=== PATIENT | female | born 1980 | race Caucasian/White ===

== ENCOUNTER 2016-10-31 10:45 | Emergency (ER) | payer OTHER, MEDICAID ==
[2016-10-31 10:56] VITALS: BP 119/73; PULSE 96; RESP 16; TEMP 98.4; O2SAT 96
--- NOTE | 2016-10-31 11:05 | UCPHY ---
H & P Patient Type: Established Chief Complaint Nursing Narrative: C/o R AC redness and pain since yesterday. Pt states she used knife yesterday to cut lump on R AC yesterday but after she noticed redness/pain. Currently taking doxycycline for bone infection. Time Seen by Provider: 10/31/16 11:04 HPI/ROS: CHIEF COMPLAINT: Right arm redness and swelling HISTORY OF PRESENT ILLNESS: This patient is a 36 year old woman, with a history of methamphetamine abuse and ankle osteomyelitis on chronic doxycycline, presenting with acute right arm erythema and swelling, over the right antecubital fossa, onset yesterday. It is tender to palpation and is aggravated by bending her elbow. Symptoms are mild-moderate in severity. There is a puncture cleo over the right elbow, which she reports is because she poked the area with a knife. She denies current methamphetamine or IV drug use. She tells me she sees a drug counselor once weekly. REVIEW OF SYSTEMS: A ten point review of systems was performed and is negative with the exception of the items mentioned in the HPI. Source: Patient Exam Limitations: No limitations - Personal History LMP (Females 10-55): 1-7 Days Ago Current Tetanus Diphtheria and Acellular Pertussis (TDAP): Yes Tetanus Vaccine Date: 06/2012 - Medical/Surgical History Hx Asthma: No Hx Chronic Respiratory Disease: No Hx Diabetes: No Hx Cardiac Disease: No Hx Renal Disease: No Hx Cirrhosis: No Hx Alcoholism: No Hx HIV/AIDS: No Hx Splenectomy or Spleen Trauma: No Other PMH: bipolar, PTSD, ANXIETY, TUBAL, R LEG FX AND ANKLE SURGERY, knee surgery, multiple substance abuse, methamphetamine abuse. MSSA osteomyelitis and hardware infection of the right ankle, on chronic doxycycline. - Family History Significant Family History: No pertinent family hx - Social History Smoking Status: Current every day smoker (1/2 pack daily) Drug Use: Other (History of methamphetamine use. Last reported use 07/2016. ) Additional Social History: She is disabled, unemployed as a result. - Physical Exam Exam: General Appearance: Alert. Smells of tobacco. Vital signs reviewed. Afebrile. Eyes: Pupils equal and round, no conjunctival injection, no discharge. Anicteric. ENT, Mouth: Mucous membranes are moist, no oropharyngeal erythema or edema. Neck: No lymphadenopathy. Respiratory: Lungs are clear to auscultation; no wheezes, rales, or rhonchi. Cardiovascular: Regular rate and rhythm; no murmur, rub, or gallop. Gastrointestinal: Abdomen is soft and nontender, no masses or organomegaly, bowel sounds normal. Skin: Warm and dry, no rashes on exposed skin. See Extremities. Back: Nontender to palpation over the thoracolumbar spine. Extremities: There is well-confined [id number] erythema and swelling to the right antecubital fossa, with associated mild tenderness. No fluctuance. No lymphangitic streaking. Normal elbow range of motion, no joint effusion. Pulse: 2+ bilateral radial pulses. Neurological: Alert and oriented. Normal strength and sensation both UEs. Psychiatric: Normal affect. Constitutional: Initial Vital Signs Temperature (C) 36.9 C 10/31/16 10:50 Heart Rate 96 10/31/16 10:50 Respiratory Rate 16 10/31/16 10:50 Blood Pressure 119/73 10/31/16 10:50 O2 Sat (%) 96 10/31/16 10:50 O2 Delivery Mode Room Air Allergies/Adverse Reactions: venom-wasp [wasp venom] Allergy (Severe, Verified 11/01/16 10:25) Anaphylaxis Sulfa (Sulfonamide Antibiotics) Allergy (Mild, Verified 11/01/16 10:25) Rash Home Medications: Medication Instructions Recorded Gabapentin [Neurontin] 06/12/16 Prazosin HCl [Minipress] 06/12/16 QUEtiapine FUMARATE [Seroquel 100 06/12/16 mg (*)] Vilazodone Hydrochloride [Viibryd] 06/12/16 clonazePAM [Klonopin (*)] 06/12/16 lamOTRIGine [Lamictal] 06/12/16 Doxycycline Hyclate [Vibramycin 07/22/16 100 MG (*)] Amoxicillin/Clavulanate Pot 875 mg PO BID #14 tab 10/31/16 [Augmentin 875 MG TAB (*)] Saphris 10/31/16 Medical Decision Making ED Course/Re-evaluation: This patient presents with right antecubital fossa erythema, swelling, and tenderness, onset yesterday. There is an associated puncture cleo. The patient states this was made with a knife poking at the area, and denies methamphetamine or other IV drug use. The area is tender to palpation. There is no associated fluctuance, no palpable abscess. History is significant for ankle osteoarthritis on chronic doxycycline, which is followed by Dr. Bob Austin, as well as history of methamphetamine abuse. I have paged infectious disease for consult. 1225: I consulted with Dr. Zandra Amado, infectious disease. She recommends adding Augmentin to her doxycycline regimen. Infectious disease will see the patient in follow up early next week. I discussed these recommendations with the patient. She expresses understanding and agreement. Recommended cool compresses and arm elevation. Differential Diagnosis: DDx includes but is not limited to abscess, cellulitis, superficial thrombophlebitis, DVT, and septic arthritis or osteomyelitis. Departure - Departure Disposition: Home, Routine, Self-Care Clinical Impression: Cellulitis of antecubital fossa Condition: Good Instructions: Cellulitis (ED) Additional Instructions: Take Augmentin, as prescribed, in addition to your normal doxycycline regimen. Apply cold packs to the area and try to elevate your arm. Follow up with Infectious Disease early next week. Seek care from an Emergency Department for fever, redness, discharge from wound, increasing pain, swelling, streaking up the arm, or other worsening of condition. Referrals: [facility],. [Clinic] - As per Instructions Bob Austin MD [Medical Doctor] - As per Instructions Prescriptions: Amoxicillin/Clavulanate Pot [Augmentin 875 MG TAB (*)] 875 mg PO BID #14 tab - PQRS PQRS Measurement: Does not apply Report Scribed for: Ariadna Gamez Report Scribed by: Rosangela Cordoba Date of Report: 10/31/16 Time of Report: 11:37 Physician Review and Approval Statement: 10/31/16 11:05 Portions of this note were transcribed by the medical detailist. I, Dr. Ariadna Gamez, personally performed the history, physical exam, and medical decision- making; and confirmed the accuracy of the information in the transcribed note.
== END 2016-10-31 12:36 | disposition home or self-care (01) ==
LOC: CED 10:45
DX: L03.113 Cellulitis of right upper limb (principal); F17.200 Nicotine dependence, unspecified, uncomplicated
CPT/HCPCS: G0463-PO

== ENCOUNTER 2016-11-01 10:15 | Emergency (ER) | payer OTHER, MEDICAID ==
[2016-11-01 11:40] LABS: % IMMATURE GRANULYOCYTES 0.3 % (0.0-1.1); ABSOLUTE IMMATURE GRANULOCYTES 0.03 10^3/uL (0.00-0.10); ADD DIFF? NO; ADD MORPH? NO; ADD SCAN? NO; ATYPICAL LYMPHOCYTE FLAG 20 (0-99); FRAGMENT RBC FLAG 0 (0-99); HEMATOCRIT 39.1 % (38.0-47.0); HEMOGLOBIN 12.9 g/dL (12.6-16.3); LEFT SHIFT FLG 0 (0-99); LIPEMIA HEMOLYSIS FLAG 80 (0-99); MEAN CELL HEMOGLOBIN 28.3 pg (27.9-34.1); MEAN CELL VOLUME 85.7 fL (81.5-99.8); MEAN PLATELET VOLUME 9.6 fL (8.7-11.7); PLATELET CLUMPS FLAG 0 (0-99); PLATELET COUNT 386 10^3/uL (150-400); RED BLOOD CELL COUNT 4.56 10^6/uL (4.18-5.33); RED CELL DISTRIBUTION WIDTH 15.8 % (11.5-15.2)
[2016-11-01 12:04] LABS: ANION GAP 12 mEq/L (8-16); CALCIUM 9.2 mg/dL (8.5-10.4); CARBON DIOXIDE 21 mEq/l (22-31); CHLORIDE 111 mEq/L (97-110); CREATININE 0.7 mg/dL (0.6-1.0); GLOMERULAR FILTRATION RATE > 60; GLUCOSE 101 mg/dL (70-100); POTASSIUM 4.6 mEq/L (3.5-5.2); SODIUM 144 mEq/L (134-144)
[2016-11-01 13:03] VITALS: RESP 16
[2016-11-01] MEDS ORDERED: BACITRACIN OINTMENT 1 PACKET TP ONE (14:08)
--- NOTE | 2016-11-01 14:17 | EDPHY ---
H & P Time Seen by Provider: 11/01/16 10:59 HPI/ROS: CHIEF COMPLAINT: Pain and swelling right arm HISTORY OF PRESENT ILLNESS: 36-year-old female presents to the emergency department with pain and swelling to her right over the last few days. The patient has a history of osteomyelitis and is currently on oral doxycycline 100 mg daily. She states that she has to take doxycycline for the rest of her life. She is concerned because she developed swelling in the right antecubital fossa and yesterday took a knife and tried to cut it open on her own. She went to urgent care yesterday and after consulting Infectious Disease, she was started on Augmentin. She has been taking Augmentin twice daily as prescribed. She continues to take the doxycycline. She is concerned about possible blood clot in her arm. No fevers or chills. No chest pain or difficulty breathing. REVIEW OF SYSTEMS: Constitutional: No fever, no chills. Eyes: No double or blurry vision. ENT: No sore throat. Respiratory: No cough, no shortness of breath. Cardiac: No chest pain. Gastrointestinal: No abdominal pain, vomiting or diarrhea. Genitourinary: No dysuria. Musculoskeletal: No neck or back pain. Skin: No rashes. Neurological: No headache. Past Medical/Surgical History: Osteomyelitis still on oral doxycycline 100 mg daily, substance abuse Social History: Single living with her mother Smoking Status: Current every day smoker Physical Exam: General Appearance: Alert, no distress. Eyes: Pupils equal and round. Extraocular motions are all intact. ENT: Mouth: Mucous membranes moist. Respiratory: No wheezing, rhonchi, or rales, lungs are clear to auscultation. Cardiovascular: Regular rate and rhythm. Gastrointestinal: Abdomen is soft and nontender, no masses, no rebound or guarding, bowel sounds normal. Neurological: Alert and oriented x 3, cranial nerves II through XII grossly intact Skin: Redness and swelling noted to the right antecubital fossa. There is some induration and tenderness with palpation. The redness extends medially to the right distal humerus. No right axillary lymphadenopathy. No lymphangitis. Warm and dry, no rashes. Musculoskeletal: Nontender to palpate along the cervical, thoracic or lumbar spine. Neck is supple. Extremities: Full range of motion and no peripheral edema. No pain with pronation or supination of the right elbow. No signs of septic joint. Psychiatric: Patient is oriented X 3, there is no agitation. Constitutional: Initial Vital Signs Temperature (C) 36.7 C 11/01/16 10:27 Heart Rate 112 H 11/01/16 10:27 Respiratory Rate 22 H 11/01/16 10:27 Blood Pressure 106/69 11/01/16 10:27 O2 Sat (%) 95 11/01/16 10:27 O2 Delivery Mode Room Air Allergies/Adverse Reactions: venom-wasp [wasp venom] Allergy (Severe, Verified 11/01/16 10:25) Anaphylaxis Sulfa (Sulfonamide Antibiotics) Allergy (Mild, Verified 11/01/16 10:25) Rash Home Medications: Medication Instructions Recorded Gabapentin [Neurontin] 06/12/16 Prazosin HCl [Minipress] 06/12/16 QUEtiapine FUMARATE [Seroquel 100 06/12/16 mg (*)] Vilazodone Hydrochloride [Viibryd] 06/12/16 clonazePAM [Klonopin (*)] 06/12/16 lamOTRIGine [Lamictal] 06/12/16 Doxycycline Hyclate [Vibramycin 07/22/16 100 MG (*)] Amoxicillin/Clavulanate Pot 875 mg PO BID #14 tab 10/31/16 [Augmentin 875 MG TAB (*)] Saphris 10/31/16 Medical Decision Making - Diagnostics Imaging: Ultrasound of the right upper extremity reveals no evidence of DVT. This was reported to me by Dr. Jam Longoria. There was evidence of superficial thrombophlebitis. Procedures: Procedure: Abscess drainage. The patient's abscess was located on the right antecubital fossa. Risks, benefits, alternatives discussed with the patient and consent obtained. Skin was cleansed with chlorhexidine and small amount of 1% lidocaine with epinephrine was instilled into the wound. The abscess was incised with a #11 blade and purulent drainage was expressed. The wound was irrigated and packed. The patient tolerated the procedure well. The procedure was performed by myself. ED Course/Re-evaluation: The case was discussed with Dr. Yessenia Campos, secondary supervising physician, who did not directly evaluate patient but agrees with treatment and plan. Patient presents with swelling and pain to her right antecubital fossa. The abscess was incised and drained, see procedure note. Large amount of pus was expressed. The patient felt much better. The patient is already on oral doxycycline and oral Augmentin. I encouraged her to continue this. Wound cultures pending and he will call for the results of this in 48 hours. She was instructed to return if she develops fever, lymphangitis, increasing pain, or if she feels worse in any way. She was instructed to return in 48 hours for packing removal. Differential Diagnosis: Including but not limited to abscess, deep vein thrombosis, cellulitis - Data Points Laboratory Results: Laboratory Results 11/01/16 11:15 11/01/16 11:15 11/01/16 11/01/16 11:15 11:15 WBC 10.09 10^3/uL H 10^3/uL (3.80-9.50) RBC 4.56 10^6/uL 10^6/uL (4.18-5.33) Hgb 12.9 g/dL g/dL (12.6-16.3) Hct 39.1 % % (38.0-47.0) MCV 85.7 fL fL (81.5-99.8) MCH 28.3 pg pg (27.9-34.1) MCHC 33.0 g/dL g/dL (32.4-36.7) RDW 15.8 % H % (11.5-15.2) Plt Count 386 10^3/uL 10^3/uL (150-400) MPV 9.6 fL fL (8.7-11.7) Neut % (Auto) 70.1 % % (39.3-74.2) Lymph % (Auto) 22.0 % % (15.0-45.0) [place] % (Auto) 6.6 % % (4.5-13.0) Eos % (Auto) 0.7 % % (0.6-7.6) Baso % (Auto) 0.3 % % (0.3-1.7) Nucleat RBC Rel Count 0.0 % % (0.0-0.2) Absolute Neuts (auto) 7.07 10^3/uL H 10^3/uL (1.70-6.50) Absolute Lymphs (auto) 2.22 10^3/uL 10^3/uL (1.00-3.00) Absolute Monos (auto) 0.67 10^3/uL 10^3/uL (0.30-0.80) Absolute Eos (auto) 0.07 10^3/uL 10^3/uL (0.03-0.40) Absolute Basos (auto) 0.03 10^3/uL 10^3/uL (0.02-0.10) Absolute Nucleated RBC 0.00 10^3/uL 10^3/uL (0-0.01) Immature Gran % 0.3 % % (0.0-1.1) Immature Gran # 0.03 10^3/uL 10^3/uL (0.00-0.10) Sodium 144 mEq/L mEq/L (134-144) Potassium 4.6 mEq/L mEq/L (3.5-5.2) Chloride 111 mEq/L H mEq/L (97-110) Carbon Dioxide 21 mEq/l L mEq/l (22-31) Anion Gap 12 mEq/L mEq/L (8-16) BUN 12 mg/dL mg/dL (7-23) Creatinine 0.7 mg/dL mg/dL (0.6-1.0) Estimated GFR > 60 Glucose 101 mg/dL H mg/dL (70-100) Calcium 9.2 mg/dL mg/dL (8.5-10.4) Microbiology Results: MICROBIOLOGY 11/01/16 14:00 Arm - Swab Gram Stain - Final Departure - Departure Disposition: Home, Routine, Self-Care Clinical Impression: Abscess of right axilla Condition: Good Instructions: Abscess (ED) Additional Instructions: Continue Augmentin and doxycycline as prescribed. Call [phone] for the results of your wound culture in 48 hours. Return to the emergency department in 2 days for packing removal and recheck. Follow-up with Infectious Disease to recheck this week. Tell them that you are in ER follow-up appointment and you are also seen in urgent care yesterday. Referrals: Bob Austin MD [Medical Doctor] - As per Instructions (Infectious disease)
[2016-11-01 14:31] VITALS: BP 101/72; PULSE 86; TEMP 98.4; O2SAT 97
== END 2016-11-01 14:39 | disposition home or self-care (01) ==
PROC: 0H9BXZZ Drainage of Right Upper Arm Skin, External Approach (ICD-10-PCS; principal; 2016-11-01)
DX: L02.411 Cutaneous abscess of right axilla (principal); F17.200 Nicotine dependence, unspecified, uncomplicated

== ENCOUNTER 2017-05-25 15:51 | Emergency (ER) | payer OTHER, MEDICAID ==
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
[2017-05-25 16:03] VITALS: O2SAT 99
[2017-05-25 16:58] VITALS: BP 103/66; PULSE 75; RESP 18; TEMP 98.4
== END 2017-05-25 16:49 | disposition home or self-care (01) ==
LOC: EDUNIT#
DX: S49.91XA Unspecified injury of right shoulder and upper arm, initial encounter (principal); F10.129 Alcohol abuse with intoxication, unspecified; V49.49XA Driver injured in collision with other motor vehicles in traffic accident, initial encounter; Y92.410 Unspecified street and highway as the place of occurrence of the external cause; Y99.8 Other external cause status; Y93.89 Activity, other specified

== ENCOUNTER 2017-05-26 11:33 | Emergency (ER) | payer OTHER, MEDICAID ==
[2017-05-26 11:43] VITALS: TEMP 98.4
[2017-05-26] MEDS ORDERED: IBUPROFEN 600 MG TAB PO ONE (12:40)
[2017-05-26] MEDS ORDERED: traMADol 50 MG TAB PO ONE (12:40)
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
[2017-05-26 12:49] VITALS: BP 102/72; PULSE 71; RESP 16; O2SAT 99
== END 2017-05-26 12:54 | disposition home or self-care (01) ==
LOC: EDUNIT#
DX: S20.219A Contusion of unspecified front wall of thorax, initial encounter (principal); V49.59XA Passenger injured in collision with other motor vehicles in traffic accident, initial encounter; Y92.410 Unspecified street and highway as the place of occurrence of the external cause; F17.200 Nicotine dependence, unspecified, uncomplicated

== ENCOUNTER 2018-03-05 11:34 | Emergency (ER) | payer OTHER, MEDICAID ==
[2018-03-05 11:47] VITALS: BP 117/82
--- NOTE | 2018-03-05 12:32 | EDPHY ---
H & P Time Seen by Provider: 03/05/18 11:59 HPI/ROS: CHIEF COMPLAINT: Left lateral ankle pain post stepping in a gopher hole 2 days ago HISTORY OF PRESENT ILLNESS: 38-year-old female arrives via private vehicle complaining of acute left lateral ankle pain after she stepped into a gopher hole 2 days ago. She rolled her foot at that time. She is able to bear partial weight only. Pain reproducible with weight-bearing and palpation of the lateral ankle. No foot pain. No 5th metatarsal pain. No proximal tibia or fibula pain. PHYSICAL EXAM (Prior to examination, patient consented to physical exam, hands were washed and my usual and customary physical exam procedures followed) 1) GENERAL: Well-developed, well-nourished, alert and oriented. Appears to be in no acute distress. 2) HEAD: Normocephalic 3) HEENT: Pupils equal, round, reactive to light bilaterally. 4) LUNGS: Breathing comfortably. 5) MUSCULOSKELETAL: Tender to palpation lateral ankle with soft tissue swelling noted and ecchymosis noted in a dependent fashion. proximal tibia and fibula nontender .5th MT nontender negative Barreto test, compartments soft. Remainder foot nontender. Fibular head nontender 6) SKIN: Intact. Ecchymosis noted. 7) VASCULAR: DP,PT pulses and cap refill present and brisk DIFFERENTIAL DIAGNOSIS: in no particular order including but not limited to fracture, sprain, compartment syndrome Xray of the left ankle interpreted by myself: no definitive acute osseous abnormality Procedure: Crutches indications for crutch use discussed with patient. Patient fitted for crutches by ER staff. Observed ambulating with crutches. I think the patient has the capacity to safely use crutches. Usual and customary crutch walking precautions provided Procedure: Splint A ravindra boot splint was applied by ER optical technician. After application of the splint I returned and re-examined the patient. The splint was adequately immobilizing the joint and distal to the splint the patient's circulation and sensation were intact. Patient shows no signs of compartment syndrome. Was given orthopedic precautions. Smoking Status: Current every day smoker Constitutional: Initial Vital Signs Temperature (C) 36.6 C 03/05/18 11:40 Heart Rate 72 03/05/18 11:40 Respiratory Rate 16 03/05/18 11:40 Blood Pressure 117/82 H 03/05/18 11:40 O2 Sat (%) 95 03/05/18 11:40 O2 Delivery Mode Room Air Allergies/Adverse Reactions: venom-wasp [wasp venom] Allergy (Severe, Verified 03/05/18 11:42) Anaphylaxis Sulfa (Sulfonamide Antibiotics) Allergy (Mild, Verified 03/05/18 11:42) Rash Home Medications: Medication Instructions Recorded Ibuprofen [Motrin (*)] 600 mg PO Q6 #15 tab 03/05/18 MDM/Departure - MDM Imaging Results: Imaging Impressions Ankle X-Ray 03/05/18 11:48 Impression: 1. No acute osseous abnormality seen left ankle. 2. Soft tissue swelling laterally compatible with ankle sprain. Images reviewed by myself ED Course/Re-evaluation: Soft compartments noted. Patient splinted. Discussed limitations of x-ray. Recommend orthopedic follow-up, usual customary orthopedic precautions instructions provided. I saw this patient independently based on established practice protocols. Care of patient under supervision of primary Supervising physician Dr Kumar . - Depart Disposition: Home, Routine, Self-Care Clinical Impression: Left ankle sprain Qualifiers: Encounter type: initial encounter Involved ligament of ankle: unspecified ligament Qualified Code(s): S93.402A - Sprain of unspecified ligament of left ankle, initial encounter Condition: Good Instructions: Ankle Sprain (ED) Additional Instructions: Return to the ER immediately if you experience discoloration, have worsening pain, numbness, tingling, or any other symptoms that concern you. If you received x-rays in the emergency department today, be advised, that ligamentous , tendon, muscular, and other non-bony injury cannot be fully ruled out. Try to keep your affected extremity elevated above the level of your chest, and keep cold packs on the affected area, for the next 48 hours. Prescriptions: Ibuprofen [Motrin (*)] 600 mg PO Q6 #15 tab Referrals: Yuniel Chen MD [Medical Doctor] - 5-7 days, call for appt.
== END 2018-03-05 12:30 | disposition home or self-care (01) ==
DX: S93.402A Sprain of unspecified ligament of left ankle, initial encounter (principal); F17.200 Nicotine dependence, unspecified, uncomplicated; X50.9XXA Other and unspecified overexertion or strenuous movements or postures, initial encounter; Y92.89 Other specified places as the place of occurrence of the external cause; Y99.8 Other external cause status; Y93.89 Activity, other specified
CPT/HCPCS: 73610; 99283; L4386

== ENCOUNTER → 2018-04-12 | Outpatient (CLI) | payer OTHER, MEDICAID | DX: J40 Bronchitis, not specified as acute or chronic (principal) ==